=== PATIENT | female | born 1990 | race Caucasian/White ===

== ENCOUNTER 2022-09-17 20:15 | Emergency (ER) | payer MEDICAID, SELFPAY ==
[2022-09-17 20:37] VITALS: BP 144/66; PULSE 103; RESP 18; TEMP 37.2; O2SAT 97; BMI 34.9
--- NOTE | 2022-09-17 20:39 | ED.GENADULT ---
HPI - General Adult General Chief complaint: ETOH/Substance Use <Emily Solis CNP - Last Filed: 09/17/22 20:45> Stated complaint: detox <Emily Solis CNP - Last Filed: 09/17/22 20:45> Time Seen by Provider: 09/17/22 23:08 <Emily Solis CNP - Last Filed: 09/17/22 20:45> Source: patient <MAURA Pruitt - Last Filed: 09/17/22 23:52> Mode of arrival: ambulatory <MAURA Pruitt - Last Filed: 09/17/22 23:52> Limitations: no limitations <MAURA Pruitt - Last Filed: 09/17/22 23:52> History of Present Illness HPI narrative: 32-year-old female history of heroin and cocaine use disorder, anxiety and depression presenting seeking detox from heroin, cocaine and methadone. Patient tells me she typically uses a bundle of heroin and a lot of cocaine unable to quantify how much cocaine. She tells me it varies. Patient tells me she was on 195 mg of methadone and is now on 40, she tells me her last dose was yesterday she tells me she gets it from the [facility] at [place]. Patient tells me she feels like she is withdrawing right now she has body aches and pains, nausea, and would like detox. Denies suicidal and homicidal ideation. Denies visual, auditory and tactile hallucinations. Patient tells me she recently got her kids taken away and would like detox so she can get them back. <MAURA Pruitt - Last Filed: 09/17/22 23:52> Related Data Allergies/adverse reactions: Allergies Allergy/AdvReac Type Severity Reaction Status Date / Time No Known Allergies Allergy Verified 09/17/22 20:44 <Emily Solis CNP - Last Filed: 09/17/22 20:45> Review of Systems Review of Systems: Constitutional : No Weight loss, No Fever, No Chills, No Fatigue, No Malaise ENT/Mouth : No sore throat, No Rhinorrhea Eyes: No Eye Pain, No Swelling, No Redness Cardiovascular : No Chest Pain, No SOB, No Dyspnea on Exertion, No Orthopnea, No Edema, No Palpitations Respiratory : No Cough, No Sputum, No Wheezing Gastrointestinal : No Nausea, No Vomiting, No Diarrhea, No Constipation, No abdominal Pain, No Hematochezia, No Melena Genitourinary : No Dysuria, No Urinary Frequency, No Hematuria, Musculoskeletal : No joint pain, No Myalgias, No Joint Swelling Skin : No Skin Lesions, No rash Neuro : No Weakness, No Numbness, No Dizziness, No Headache Psych : No Anxiety/Panic, No Depression All other systems reviewed and are negative <MAURA Pruitt - Last Filed: 09/17/22 23:52> Yes all other systems are reviewed and are negative <MAURA Pruitt - Last Filed: 09/17/22 23:52> [facility] Social History Social History: Social History Advance Directives: No Advance Directives Information Provided: No <Emily Solis CNP - Last Filed: 09/17/22 20:45> Physical Exam ED Vital Signs: Vital Signs - 24 hr 09/17/22 20:37 09/18/22 00:42 Temperature 98.9 F Pulse Rate 103 H Respiratory Rate 18 20 Blood Pressure 144/66 H Pulse Oximetry 97 Oxygen Delivery Method Room Air BMI result Body Mass Index 34.9 <Emily Solis CNP - Last Filed: 09/17/22 20:45> Vital Signs - 24 hr 09/17/22 20:37 09/18/22 00:42 Temperature 98.9 F Pulse Rate 103 H Respiratory Rate 18 20 Blood Pressure 144/66 H Pulse Oximetry 97 Oxygen Delivery Method Room Air BMI result Body Mass Index 34.9 <MAURA Pruitt - Last Filed: 09/17/22 23:52> Vital Signs - 24 hr 09/17/22 20:37 09/18/22 00:42 Temperature 98.9 F Pulse Rate 103 H Respiratory Rate 18 20 Blood Pressure 144/66 H Pulse Oximetry 97 Oxygen Delivery Method Room Air BMI result Body Mass Index 34.9 <Kate Ayers MD - Last Filed: 09/18/22 02:14> Course Course Course Narrative: This is an RME: Additional HPI, ROS, PE not included below will be deferred to primary provider. Patient 32-year-old female who presents to the emergency department requesting assistance with detox from heroine, cocaine, methadone. States she received 1/4 of my dose , methadone clinic in [place], was stuck in [place] for 1 week so couldn't go to clinic, upon returning, dosage was decreased, so she has resorted to using again. Last dose was yesterday at [facility] in [place]. She is requesting assistance with detox to stop using and get back to her prior dosing. Reports chills, vomiting, bloating. Last used heroin and cocaine this morning. Denies known sick contacts. Plan: Referral to care team for acid recovery operator assistance with detox, COVID-19 screening <Emily Solis CNP - Last Filed: 09/17/22 20:45> Reevaluation(s) Reevaluation #1: Patient COVID negative. Unable to verify methadone dose at this time. Patient is adamant about going to detox. Tells me she would like to stay the night and speak to recovery in the morning. At this time patient will be placed into observation to allow more time to be evaluated by acid recovery operator and or care team. At time observation was started patient common cooperative no acute distress will continue to monitor. <MAURA Pruitt - Last Filed: 09/17/22 23:52> Time: 23:30 <MAURA Pruitt - Last Filed: 09/17/22 23:52> Medications Administered Discontinued Medications Generic Name Dose Route Start Last Admin Trade Name Freq PRN Reason Stop Dose Admin Lorazepam 2 mg 09/17/22 23:19 09/17/22 23:31 Lorazepam 1 Mg Tablet PO 09/17/22 23:20 2 mg ONCE ONE Administration Naloxone HCl 4 mg 09/17/22 23:40 09/18/22 02:23 Naloxone Hcl Nasal 4 Mg [place] NOSTRILALT 09/17/22 23:41 4 mg ONCE ONE Administration <Emily Solis CNP - Last Filed: 09/17/22 20:45> Medications Administered Discontinued Medications Generic Name Dose Route Start Last Admin Trade Name Freq PRN Reason Stop Dose Admin Lorazepam 2 mg 09/17/22 23:19 09/17/22 23:31 Lorazepam 1 Mg Tablet PO 09/17/22 23:20 2 mg ONCE ONE Administration Naloxone HCl 4 mg 09/17/22 23:40 09/18/22 02:23 Naloxone Hcl Nasal 4 Mg [place] NOSTRILALT 09/17/22 23:41 4 mg ONCE ONE Administration <MAURA Pruitt - Last Filed: 09/17/22 23:52> Medications Administered Discontinued Medications Generic Name Dose Route Start Last Admin Trade Name Delfin PRN Reason Stop Dose Admin Lorazepam 2 mg 09/17/22 23:19 09/17/22 23:31 Lorazepam 1 Mg Tablet PO 09/17/22 23:20 2 mg ONCE ONE Administration Naloxone HCl 4 mg 09/17/22 23:40 09/18/22 02:23 Naloxone Hcl Nasal 4 Mg [place] NOSTRILALT 09/17/22 23:41 4 mg ONCE ONE Administration <Kate Ayers MD - Last Filed: 09/18/22 02:14> Medical Decision Making Medical Decision Making MDM Narrative: 2315 32-year-old female presents seeking detox from methadone, cocaine and heroin Physical exam benign Likely withdrawal. Unlikely metabolic disturbances. Plan medical clearance evaluation with care team <MAURA Pruitt - Last Filed: 09/17/22 23:52> 2315 32-year-old female presents seeking detox from methadone, cocaine and heroin Physical exam benign Likely withdrawal. Unlikely metabolic disturbances. Plan medical clearance evaluation with care team -I received sign-out from MAURA Martins -at 02:10, I was informed by the patient's nurse that the patient wants to be discharged and no longer wants to wait for detox. -patient is not suicidal or homicidal. And is alert and oriented x3, ambulatory with steady gait <Kate Ayers MD - Last Filed: 09/18/22 02:14> Differential Diagnosis Differential Diagnoses: The differential diagnosis associated with the presentation includes <MAURA Pruitt - Last Filed: 09/17/22 23:52> Likely withdrawal. Unlikely metabolic disturbances. <MAURA Pruitt - Last Filed: 09/17/22 23:52> Admission/Observation Consideration of admission/observation: Escalation of care including admission/observation considered <MAURA Pruitt - Last Filed: 09/17/22 23:52> Consult Healthcare Provider Management of the patient was discussed with: Behavioral Health Provider <MAURA Pruitt - Last Filed: 09/17/22 23:52> Lab Data MDM Lab Attestation statement: I reviewed the patient's lab results. <MAURA Pruitt - Last Filed: 09/17/22 23:52> Labs: Lab Results 09/17/22 09/18/22 09/18/22 Range/Units 20:56 00:01 00:07 Urine Test NEGATIVE (NEGATIVE) Urine Opiates Screen (Not Detect) Urine Fentanyl Screen (Not Detect) Ur Barbiturates Screen (Not Detect) Ur Phencyclidine Scrn (Not Detect) Ur Amphetamines Screen (Not Detect) U Benzodiazepines Scrn (Not Detect) Urine Cocaine Screen (Not Detect) U Marijuana (THC) Screen (Not Detect) COVID-19 (BLACK) Negative Negative (Negative) COVID-19 Clin Com See Note See Note 09/18/22 Range/Units 00:07 Urine Test (NEGATIVE) Urine Opiates Screen POSITIVE H (Not Detect) Urine Fentanyl Screen POSITIVE H (Not Detect) Ur Barbiturates Screen Not Detected (Not Detect) Ur Phencyclidine Scrn Not Detected (Not Detect) Ur Amphetamines Screen Not Detected (Not Detect) U Benzodiazepines Scrn Not Detected (Not Detect) Urine Cocaine Screen POSITIVE H (Not Detect) U Marijuana (THC) Screen Not Detected (Not Detect) COVID-19 (BLACK) (Negative) COVID-19 Clin Com <Emily Solis CNP - Last Filed: 09/17/22 20:45> Lab Results 09/17/22 09/18/22 09/18/22 Range/Units 20:56 00:01 00:07 Urine Test NEGATIVE (NEGATIVE) Urine Opiates Screen (Not Detect) Urine Fentanyl Screen (Not Detect) Ur Barbiturates Screen (Not Detect) Ur Phencyclidine Scrn (Not Detect) Ur Amphetamines Screen (Not Detect) U Benzodiazepines Scrn (Not Detect) Urine Cocaine Screen (Not Detect) U Marijuana (THC) Screen (Not Detect) COVID-19 (BLACK) Negative Negative (Negative) COVID-19 Clin Com See Note See Note 09/18/22 Range/Units 00:07 Urine Test (NEGATIVE) Urine Opiates Screen POSITIVE H (Not Detect) Urine Fentanyl Screen POSITIVE H (Not Detect) Ur Barbiturates Screen Not Detected (Not Detect) Ur Phencyclidine Scrn Not Detected (Not Detect) Ur Amphetamines Screen Not Detected (Not Detect) U Benzodiazepines Scrn Not Detected (Not Detect) Urine Cocaine Screen POSITIVE H (Not Detect) U Marijuana (THC) Screen Not Detected (Not Detect) COVID-19 (BLACK) (Negative) COVID-19 Clin Com <MAURA Pruitt - Last Filed: 09/17/22 23:52> Lab Results 09/17/22 09/18/22 09/18/22 Range/Units 20:56 00:01 00:07 Urine Test NEGATIVE (NEGATIVE) Urine Opiates Screen (Not Detect) Urine Fentanyl Screen (Not Detect) Ur Barbiturates Screen (Not Detect) Ur Phencyclidine Scrn (Not Detect) Ur Amphetamines Screen (Not Detect) U Benzodiazepines Scrn (Not Detect) Urine Cocaine Screen (Not Detect) U Marijuana (THC) Screen (Not Detect) COVID-19 (BLACK) Negative Negative (Negative) COVID-19 Clin Com See Note See Note 09/18/22 Range/Units 00:07 Urine Test (NEGATIVE) Urine Opiates Screen POSITIVE H (Not Detect) Urine Fentanyl Screen POSITIVE H (Not Detect) Ur Barbiturates Screen Not Detected (Not Detect) Ur Phencyclidine Scrn Not Detected (Not Detect) Ur Amphetamines Screen Not Detected (Not Detect) U Benzodiazepines Scrn Not Detected (Not Detect) Urine Cocaine Screen POSITIVE H (Not Detect) U Marijuana (THC) Screen Not Detected (Not Detect) COVID-19 (BLACK) (Negative) COVID-19 Clin Com <Kate Ayers MD - Last Filed: 09/18/22 02:14> Core Measures AMI core measures followed: Yes <MAURA Pruitt - Last Filed: 09/17/22 23:52> Measure exclusions: not indicated <MAURA Pruitt - Last Filed: 09/17/22 23:52> Critical Care Time Critical Care Time Critical Care Time: No <MAURA Pruitt - Last Filed: 09/17/22 23:52> Discharge Plan Discharge Clinical Impression: Opiate withdrawal <Emily Solis CNP - Last Filed: 09/17/22 20:45> Patient Disposition: Home, Self-Care <Emily Solis CNP - Last Filed: 09/17/22 20:45> Instructions: Opioid Withdrawal (ED), Opioid Use Disorder (ED) <Emily Soils CNP - Last Filed: 09/17/22 20:45> Additional Instructions: Take your medications as prescribed. If you were prescribed antibiotics today, it is important that you take your medication to their entirety, do not skip any doses, do not finish them early. Follow-up with your primary care provider this week. Return to the emergency department with new or worsening symptoms. Such as fevers, chills, chest pain, shortness of breath, nausea, vomiting, dizziness, headache, vision changes, lethargy, suicidal or homicidal ideation In case of emergency call 911 <Emily Solis CNP - Last Filed: 09/17/22 20:45> [facility] - 2 days Frank Clark DO [Primary Care Provider] - 2 days <Emily Solis CNP - Last Filed: 09/17/22 20:45> Interventions: [place]-Suicide Risk Severity Scale Last Done: 09/17/22 20:45 ED Discharge Assessment Last Done: 09/18/22 02:28 <Emily Solis CNP - Last Filed: 09/17/22 20:45> Discharge Date/Time: 09/18/22 02:30 <Emily Solis CNP - Last Filed: 09/17/22 20:45>
[2022-09-17 21:17] LABS: COVID-19 Test Negative (Negative); IDNOW Serial# 6674DD1D
[2022-09-17] MEDS: LORazepam 1 MG TABLET 2 MG PO (23:31)
--- NOTE | 2022-09-17 23:32 | MHC.CARE ---
Spoke to ED provider, pt will remain the night and see Recovery team in am. Pt is interested in pursuing a detox program.
[2022-09-18 00:18] LABS: UPreg QC Valid YES; Urine Pregnancy NEGATIVE (NEGATIVE)
[2022-09-18 00:21] LABS: COVID-19 Test Negative (Negative); IDNOW Serial# BCCEAD1C
[2022-09-18 00:22] LABS: Amphetamine Screen Urine Not Detected (Not Detect); Barbiturates, Urine Not Detected (Not Detect); Benzodiazepines Screen Urine Not Detected (Not Detect); Cannabinoid Screen Urine Not Detected (Not Detect); Cocaine Screen Urine POSITIVE (Not Detect); Fentanyl, urine POSITIVE (Not Detect); Opiate Screen Urine POSITIVE (Not Detect); Phencyclidine Screen Urine Not Detected (Not Detect)
--- NOTE | 2022-09-18 00:40 | MHC.EDTECH ---
pt asleep in room, calm
[2022-09-18 00:42] VITALS: RESP 20
[2022-09-18] MEDS: Naloxone HCl Nasal 4 MG SPRAY NOSTRILALT (02:23)
--- NOTE | 2022-09-18 02:25 | PC.NURSE ---
Reviewed discharge instructions for pt. pt verbalized understanding, Pt wanting to be discharge upon discovering her boyfriend was not admitted. Pt requesting to leave. Notified BOYD Rodriguez. Pt given medication at discharge.
== END 2022-09-18 02:30 | disposition home or self-care (01) ==
PROVIDERS: Nurse Practitioner Family; Physician Assistant; Emergency Provider Internal Medicine; PCP Family Medicine
DX: F11.23 Opioid dependence with withdrawal (principal); Z20.822 Contact with and (suspected) exposure to COVID-19; Z20.828 Contact with and (suspected) exposure to other viral communicable diseases; Z79.899 Other long term (current) drug therapy
CPT/HCPCS: 80307; 81025; 87635; 99284

== ENCOUNTER 2022-09-19 10:42 | Emergency (ER) | payer MEDICAID, SELFPAY ==
[2022-09-19 11:08] VITALS: BP 128/79; PULSE 103; RESP 16; TEMP 36.3; O2SAT 100; BMI 34.3
--- NOTE | 2022-09-19 11:30 | ED.GENADULT ---
HPI - General Adult General Chief complaint: General Medical Stated complaint: Needs methadone dose Time Seen by Provider: 09/19/22 11:21 Source: patient Mode of arrival: ambulatory Limitations: no limitations History of Present Illness HPI narrative: Patient is a 32 year old assigned female at with a history of opiate abuse presenting to the emergency department today requesting her missed methadone dose. Patient states that due to scheduling at the clinic, she had to miss her methadone dose today. Patient denies any dizziness, lightheadedness, abdominal pain, nausea, vomiting, fever, chills, blurry vision, double vision, loss of vision, chest pain, difficulty breathing, shortness of breath, back pain, night sweats, pain with urination, increased urinary frequency, increased urinary urgency, blood in her urine or stool, syncope or a near syncopal episode, recent trauma or falls, bowel incontinence, bladder incontinence, bowel retention, bladder retention, or any other complaints at this time. Severity: mild Severity scale (1-10): 1 Relieving factors: none Exacerbating factors: none Associated symptoms: denies other symptoms Treatments prior to arrival: none Related Data Allergies Allergy/AdvReac Type Severity Reaction Status Date / Time No Known Allergies Allergy Verified 09/17/22 20:44 Review of Systems Constitutional: Constitutional: Reports no additional constitutional complaints, Denies chills, Denies fever(s) and Denies night sweats Eyes: Eyes: Reports no additional eye complaints, Denies blurry vision, Denies change in vision, Denies diplopia, Denies eye discharge, Denies loss of vision and Denies eye pain ENT: Denies dizziness Cardiovascular: Cardiovascular: Reports no additional cardiovascular complaints, Denies chest pain, Denies lightheadedness, Denies Loss of Consciousness and Denies dyspnea Respiratory: Respiratory: Reports no additional respiratory complaints and Denies dyspnea Gastrointestinal: Gastrointestinal: Reports no additional gastrointestinal complaints, Denies abdominal pain, Denies melena, Denies hematochezia, Denies change in bowel habits and Denies change in stool character Genitourinary: Genitourinary: Denies hematuria, Denies urinary frequency, Denies dysuria, Denies urinary incontinence, Denies urinary hesitancy and Denies urinary urgency Musculoskeletal: Musculoskeletal: Reports no additional musculoskeletal complaints, Denies numbness and Denies tingling Neurologic: Denies dizziness, Denies loss of vision, Denies numbness and Denies tingling Psychiatric: Psychiatric: Reports no additional psychiatric complaints Endocrine: Endocrine: Reports no additional endocrine complaints Hematologic/Lymphatic: Hematologic/Lymphatic: Reports no additional hematologic/lymphatic complaints Allergic/Immunologic: Allergic/Immunologic: Reports no additional allergic/immunologic complaints PMFSH Past Medical History Attestation statement: The following information was validated with the patient. Source: old records reviewed and nursing notes reviewed Social History Social History Advance Directives: No Advance Directives Information Provided: No Physical Exam ED Vital Signs: Vital Signs - 24 hr 09/19/22 11:08 Temperature 97.4 F Pulse Rate 103 H Respiratory Rate 16 Blood Pressure 128/79 Pulse Oximetry 100 Oxygen Delivery Method Room Air BMI result Body Mass Index 34.3 Const General: cooperative, no acute distress, alert and awake Nutritional Appearance: well nourished Orientation/consciousness: patient oriented x3 Limitations: no limitations HENMT Head: Yes normal to inspection and Yes atraumatic Ears: hearing grossly normal bilaterally and external ears normal General nose exam: Normal external nose present, no nasal discharge noted and no epistaxis Face and sinus: Yes normal facial exam, No abrasion and No laceration Mouth: Normal oral and palatal mucosa present, no drooling and no muffled voice Eyes General: appearance normal, both eyes and all related structures Periorbital: periorbital findings normal Eyelids: Yes eyelids normal Conjunctivae: conjunctivae normal Pupils: Equal, round and reactive pupils present EOM: EOMs intact bilaterally Neck Neck: Yes normal visual inspection, Yes full ROM and Yes no lymphadenopathy Chest Chest palpation & inspection: normal inspection of the chest Resp Effort & Inspection: normal respiratory effort and able to speak in complete sentences Auscultation: clear to auscultation bilaterally Cardio Rate: regular rate Rhythm: regular rhythm GI Inspection: Yes normal to inspection Palpation (GI): Soft to palpation, not firm, nontender and no guarding Neuro General: patient oriented x3 and moves all extremities Cranial nerves: Yes Equal, round and reactive pupils present Cognition (Neuro): normal cognition Motor exam (neuro): 5/5 motor strength present throughout Sensory Exam: Normal double simultaneous stimulation for sensation Coordination: [id number] test normal Extrem General: Yes normal to inspection, Yes full ROM and Yes capillary refill normal Psych Appearance: grossly normal Mental Status: mental status grossly normal Affect: normal affect Attitude: cooperative Thought process: Normal thought process present Thought content: Normal thought content present Insight: Good insight present (Psych) Medications Administered Discontinued Medications Generic Name Dose Route Start Last Admin Trade Name Delfin PRN Reason Stop Dose Admin Methadone HCl 40 mg 09/19/22 11:29 09/19/22 11:38 Methadone Hcl 20 Mg/2 Ml Oral.Conc PO 09/19/22 11:30 40 mg ONCE ONE Administration Medical Decision Making Medical Decision Making MDM Narrative: Patient is a 32 year old assigned female at with a history of opiate abuse presenting to the emergency department today for a methadone dose. Patient's physical exam was unremarkable. Patient's dose was confirmed at 40mg. I explained my physical exam findings to the patient. I answered all questions asked by the patient. Patient received her methadone dose without incident. I stressed the importance of the patient taking her medication as prescribed. I stressed the importance of the patient following up with her primary care provider. I stressed the importance of the patient returning to the emergency department immediately if her symptoms were to worsen or if she were to develop any dizziness, shortness of breath, difficulty breathing, chest pain, blurry vision, loss of vision, nausea, vomiting, abdominal pain, fever, chills, back pain, or any other complaints. Patient verbalized agreement and understanding with this treatment plan and discharge. Differential Diagnosis Differential Diagnoses: The differential diagnosis associated with the presentation includes methadone dose Discharge Plan Discharge Clinical Impression: Methadone dependence Patient Disposition: Home, Self-Care Additional Instructions: You mentioned needing psychiatric medication refills - please follow up with one of the areas below for immediate access to a psychiatrist. Follow up with your primary care provider. Return to the emergency department immediately if you develop any dizziness, shortness of breath, difficulty breathing, chest pain, blurry vision, loss of vision, nausea, vomiting, abdominal pain, fever, chills, back pain, or any other complaints. [facility]: [address] [place] [address] Open from 10am - 12pm [facility] Crisis Services: [address] [place] [address] Open 01/02 [facility]: [address] [place] [id number] [address] [place] [id number] Hours: M-F 8am to 8pm Wednesday and Wednesday 9am to 5pm Referrals: Frank Clark, [Primary Care Provider] - Interventions: ED Discharge Assessment Last Done: 09/19/22 11:46 Discharge Date/Time: 09/19/22 11:47 Print Language: Divehi
[2022-09-19] MEDS: methADONE HCl 20 MG/2 ML ORAL.CONC 40 MG PO (11:38)
--- NOTE | 2022-09-19 11:39 | PC.NURSE ---
methadone verified, pt medicated per provider order.
== END 2022-09-19 11:47 | disposition home or self-care (01) ==
LOC: HO.ED 11:41
PROVIDERS: Emergency Provider Emergency Medicine; PCP Family Medicine
DX: F11.20 Opioid dependence, uncomplicated (principal)
CPT/HCPCS: 99282; 99283